=== PATIENT | male | born 1955 | race Hispanic/Latino ===

== ENCOUNTER 2023-04-24 14:09 | Outpatient (CLI) | payer MEDICARE | END 2023-04-24 14:10 | disposition home or self-care (01) | LOC: BICULT 14:09 | PROVIDERS: ATTEND Urology | DX: E11.9 Type 2 diabetes mellitus without complications (principal); N28.9 Disorder of kidney and ureter, unspecified; R35.0 Frequency of micturition; R80.9 Proteinuria, unspecified; K76.0 Fatty (change of) liver, not elsewhere classified | CPT/HCPCS: 76770 ==

== ENCOUNTER 2023-11-07 14:57 | Outpatient (CLI) | payer MEDICARE | END 2023-11-07 14:58 | disposition home or self-care (01) | LOC: ULT 14:57 | PROVIDERS: ATTEND Internal Medicine | DX: R09.89 Other specified symptoms and signs involving the circulatory and respiratory systems (principal); I65.21 Occlusion and stenosis of right carotid artery | CPT/HCPCS: 93880 ==